=== PATIENT | female | born 1975 | race Caucasian/White ===

== ENCOUNTER → 2017-02-19 10:16 | Outpatient (CLI) | payer OTHER | END | disposition home or self-care (01) | LOC: D.RAD 10:16 | DX: K21.9 Gastro-esophageal reflux disease without esophagitis (principal) ==

== ENCOUNTER → 2017-03-24 10:59 | Outpatient (CLI) | payer OTHER, MEDICAID | END | disposition home or self-care (01) | LOC: D.LAB 10:59 | DX: Z87.19 Personal history of other diseases of the digestive system (principal) ==

== ENCOUNTER → 2017-09-19 09:40 | Outpatient (CLI) | payer OTHER, MEDICAID | END | disposition home or self-care (01) | LOC: D.CT 09:40 | DX: J32.0 Chronic maxillary sinusitis (principal) ==